=== PATIENT | female | born 1995 | race American Indian/Alaskan Native ===

== ENCOUNTER 2017-07-28 13:49 | Emergency (ER) | payer BC ==
[2017-07-28 13:59] VITALS: RESP 18
[2017-07-28 14:17] VITALS: BMI 25.9
--- NOTE | 2017-07-28 14:17 | C.PDOC ---
History Of Present Illness 22 y/o female with PMHx of Depression presents to ED with complaints of acute exacerbating panic attack today with associated heart racing and dizziness. Patient states she is compliant with psych medications and states in the past she cut herself "But i haven't done that in a long time". Patient denies suicidal ideation, hallucinations or any other complaints at this time. ACUTE EXAC PANIC ATTACK TODAY. CO DIZZY, HEART RACING. PS COMPLIANT W PSYCH MEDS. PS PREVIOUSLY WOULD CUT HERSELF "BUT I HAVENT DONE THAT IN A LONG TIME". NO SI, HALLUCINATIONS EXAM MILD DIST NONTOXIC PSYCH MOD ANXIETY CALM COOPERATIVE NO ACTIVE SI/SA, ACTIVE PSYCHOSIS CV RRR REMAINDER NEG MDM PT DOES NOT WISH PSYCH ADMISSION Chief Complaint (Nursing): Anxiety History Per: Patient History/Exam Limitations: no limitations Onset/Duration Of Symptoms: Hrs Current Symptoms Are (Timing): Still Present Past Medical History Reviewed: Historical Data, Nursing Documentation, Vital Signs Vital Signs: Last Vital Signs Temp 98.0 F 07/28/17 13:52 Pulse 84 07/28/17 13:52 Resp 18 07/28/17 13:52 BP 116/80 07/28/17 13:52 Pulse Ox 99 07/28/17 14:55 - Medical History PMH: Depression Surgical History: No Surg Hx Family History: States: No Known Family Hx - Social History Hx Tobacco Use: No Hx Alcohol Use: Yes Hx Substance Use: No - Immunization History Hx Tetanus Toxoid Vaccination: No Hx Influenza Vaccination: No Hx Pneumococcal Vaccination: No Review Of Systems Constitutional: Negative for: Fever, Chills Cardiovascular: Negative for: Chest Pain Respiratory: Negative for: Shortness of Breath Gastrointestinal: Negative for: Nausea, Vomiting Skin: Negative for: Rash Neurological: Negative for: Weakness, Numbness Psych: Positive for: Anxiety. Negative for: Suicidal ideation Physical Exam - Physical Exam Appears: Non-toxic, Other (Mild distress) Skin: Warm, Dry, No Rash Head: Atraumatic, Normacephalic Eye(s): bilateral: Normal Inspection Oral Mucosa: Moist Neck: Normal ROM, Supple Cardiovascular: Rhythm Regular Respiratory: Normal Breath Sounds, No Rales, No Rhonchi, No Wheezing Extremity: Normal ROM, Capillary Refill (<2 seconds) Neurological/Psych: Oriented x3, Normal Speech, Other (Cooperative no active SI/ SA (+)active psychosis) ED Course And Treatment O2 Sat by Pulse Oximetry: 99 (RA) Pulse Ox Interpretation: Normal Reevaluation Time: 16:16 Reassessment Condition: Improved Medical Decision Making Medical Decision Making: PT DOES NOT WISH PSYCH ADMISSION Disposition Counseled Patient/Family Regarding: Diagnosis, Need For Followup - Disposition Referrals: YOUR,PSYCHIATRIST [Other] Disposition: HOME/ ROUTINE Disposition Time: 16:18 Condition: IMPROVED Instructions: Anxiety (ED) Forms: [employer] ([place]) - Clinical Impression Clinical Impression: Anxiety - Scribe Statement The provider has reviewed the documentation as recorded by the Barbaraibiban Sanchez All medical record entries made by the Barbaraibiban were at my direction and personally dictated by me. I have reviewed the chart and agree that the record accurately reflects my personal performance of the history, physical exam, medical decision making, and the department course for this patient. I have also personally directed, reviewed, and agree with the discharge instructions and disposition.
[2017-07-28 16:22] VITALS: BP 114/78; PULSE 86; TEMP 98.2; O2SAT 100
== END 2017-07-28 16:27 | disposition home or self-care (01) ==
LOC: C.ER 13:49
DX: F41.9 Anxiety disorder, unspecified (principal)